=== PATIENT | female | born 1965 | race Caucasian/White ===

== ENCOUNTER 2016-04-10 11:22 | Emergency (ER) | payer OTHER ==
[2016-04-10] MEDS ORDERED: Acetaminophen TAB* 325 MG PO ONE (12:20)
[2016-04-10 12:30] LABS: Hematocrit 43 % (35-47); Mean Corpuscular HGB Conc 33 g/dl (31-36); Mean Corpuscular Hemoglobin 29 pg (27-31); Mean Corpuscular Volume 88 fL (80-97); Mean Platelet Volume 9 um3 (7.4-10.4); Red Blood Count 4.81 10^6/ul (4.0-5.4); Red Cell Distribution Width 15 % (10.5-15); White Blood Count 5.7 10^3/ul (3.5-10.8)
[2016-04-10] MEDS ORDERED: NS 0.9% 1000 ML* 1,000 ML IV SCH (12:30)
[2016-04-10 12:41] LABS: Acetaminophen < 15 mcg/mL; Alcohol < 10 mg/dL (<10)
[2016-04-10 12:42] LABS: ALT 20 U/L (7-52); AST 19 U/L (13-39); Albumin 4.2 g/dL (3.2-5.2); Alkaline Phosphatase 76 U/L (34-104); Anion Gap 6 mmol/L (2-11); BUN/Creatinine Ratio 11.8 (8-20); Blood Urea Nitrogen 12 mg/dL (6-24); C Reactive Protein 3.58 mg/L (< 5.00); CO2 Carbon Dioxide 23 mmol/L (22-32); Calcium 9.2 mg/dL (8.6-10.3); Chloride 111 mmol/L (101-111); EGFR African American 73.8 (>60); EGFR Non-African American 57.4 (>60); Globulin 2.9 g/dL (2-4); Glucose 99 mg/dL (70-100); Potassium 3.6 mmol/L (3.5-5.0); Sodium 140 mmol/L (133-145); Total Protein 7.1 g/dL (6.4-8.9)
[2016-04-10 12:46] LABS: Troponin I 0.01 ng/mL (<0.04)
[2016-04-10 12:51] LABS: TSH (Thyroid Stimulating Horm) 1.02 mcIU/mL (0.34-5.60)
[2016-04-10 12:53] VITALS: BP 118/74
[2016-04-10 13:04] LABS: Urine Bilirubin Negative (Negative); Urine Glucose Negative (Negative); Urine Nitrite Negative (Negative)
--- NOTE | 2016-04-10 13:07 | RAD ---
INDICATION: Left-sided weakness COMPARISON: CT of the chest dated October 15, 2013 TECHNIQUE: Single AP portable view of the chest was obtained. FINDINGS: Image quality is compromised due to the relative inferiority of a portable chest x-ray. The heart and mediastinum exhibit normal size and contour. The lungs are grossly clear. There is no evidence of a large pleural effusion. Visualized bones are normal for the patient's age. IMPRESSION: No radiographic evidence for acute cardiopulmonary abnormality on this portable chest x-ray.
--- NOTE | 2016-04-10 13:28 | RAD ---
Indication: LEFT face, arm, leg weakness. History of medial hepatic intracranial hypertension. Comparison: October 15, 2013 CT. December 11, 2006 MRI. Technique: Noncontrast CT vertex of skull through foramen magnum. Report: The sulci, ventricles, and basal cisterns are normal for age. Sexton matter white matter differentiation is preserved without evidence for edema. No intra or extra axial hemorrhage, mass, or fluid collection detected. Unremarkable orbital contents. Indolent thickening of the inner table of the bone. No suspicious focal osseous lesions evident. Unremarkable scalp. Partially visualized LEFT maxillary sinus demonstrates an air-fluid level. IMPRESSION: 1. Negative unenhanced CT of the brain. 2. Correlate for potential acute LEFT maxillary sinusitis.
[2016-04-10] MEDS ORDERED: Sulfamethox/Trimethoprim DS 800/160* TAB PO ONE (14:02)
--- NOTE | 2016-04-10 14:04 | ED ---
Ryley Augustin Aidan, scribed for Daniel Flores MD on 04/10/16 at 1240 . Neurological HPI - HPI Summary HPI Summary: 50 y/o female presents to the ED with a complaint of acute, constant, moderate left-sided weakness that began as numbness at 0700 this morning when she woke up. She reports increased weakness in her left arm and leg, decreased sensation in the left side of her face, and a left eyelid droop. Symptoms have worsened since onset. Hx of stroke and chronic left sided weakness. Pt uses a cane to walk. Other associated symptoms include severe (9/10) left eye and ear pressure that aggravates her hearing and a sensation in the lower thoracic spine that she associated with getting nauseous. Today, she saw her PCP for the lower thoracic spine sensation. Pt denies any sore throat or nasal congestion and she is eating normally. - History of Current Complaint Chief Complaint: EDNeurologicalDeficit Stated Complaint: POSSIBLE STROKE Time Seen by Provider: 04/10/16 12:05 Hx Obtained From: Patient Hx Last Menstrual Period: 50 y/o female Onset/Duration: Sudden Onset, Started hours ago, Still Present Timing: Constant Onset Severity: Moderate Current Severity: Moderate - with severe left eye and ear pressure Number of Seizures: 0 - no seizures Neurological Deficit Location: RUE, RLE Headache Location: Diffuse (Left) - left ear and eye pressure Pain Intensity: 9 Pain Scale Used: 0-10 Numeric Character: Weak - left sided weakness, Numbness/Tingling - left sided weakness began as a numbness when Pt woke up this morning, Other: - severe left eye and ear pain Number of Episodes: 0 Frequency: Episodes x___ - 0 Associated Signs and Symptoms: Positive: Weakness - left-sided. Negative: Nothing - reports increased weakness in her left arm and leg, decreased sensation in the left side of her face, and a left eyelid droop, moderate-to- severe left eye and ear pressure that aggravates her hearing and a sensation in the lower thoracic spine that she associated with getting nauseous - Allergy/Home Medications Allergies/Adverse Reactions: Allergies Allergy/AdvReac Type Severity Reaction Status Date / Time Erythromycin Allergy Severe Hives, Verified 10/15/13 17:29 THROAT SWELLS Penicillins Allergy Severe HIVES, Verified 10/15/13 17:29 THROAT SWELLS. PMH/Surg Hx/FS Hx/Imm Hx Endocrine/Hematology History: Reports: Hx Thyroid Disease - DOES NOT NEED MEDS ANYMORE Denies: Hx Diabetes Cardiovascular History: Reports: Hx Hypertension Denies: Hx Congestive Heart Failure Respiratory History: Reports: Hx Asthma History: Denies: Hx Renal Disease Neurological History: Reports: Hx Seizures Psychiatric History: Reports: Hx Anxiety - Cancer History Cancer Type, Location and Year: 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 29 - Surgical History Surgery Procedure, Year, and Place: HYSTERECTOMY, T&A Infectious Disease History: No Infectious Disease History: Denies: Traveled Outside the [place] in Last 30 Days - Family History Known Family History: Positive: Hypertension - Social History Occupation: Unemployed Lives: Alone Alcohol Use: None Substance Use Type: Reports: None Smoking Status (MU): Never Smoked Tobacco Review of Systems Constitutional: Negative Eyes: Other - left eye pressure Negative: Photophobia, Blurred Vision, Diplopia, Drainage, Erythema Positive: Ear Ache - left ear pressure. Negative: Epistaxis, Dental Pain, Sore Throat, Nasal Discharge Cardiovascular: Negative Respiratory: Negative Positive: Nausea. Negative: Abdominal Pain, Vomiting, Diarrhea Genitourinary: Negative Positive: Arthralgia - sensation in the lower thoracic spine that she associated with getting nauseous. Negative: Myalgia, Decreased ROM, Edema Skin: Negative Positive: Weakness - increased weakness in her left arm and leg, decreased sensation in the left side of her face, and a left eyelid droop, Numbness - left -sided weakness began as numbness when pt woke up this morning. Negative: Paresthesia, Syncope, Slurred Speech Psychological: Normal All Other Systems Reviewed And Are Negative: Yes Physical Exam Triage Information Reviewed: Yes Vital Signs On Initial Exam: Initial Vitals Temp Pulse Resp BP Pulse Ox 99.3 F 90 16 129/85 98 04/10/16 11:25 04/10/16 11:25 04/10/16 11:25 04/10/16 11:25 04/10/16 11:25 Vital Signs Reviewed: Yes Appearance: Positive: Well-Appearing, No Pain Distress Skin: Positive: Warm, Skin Color Reflects Adequate Perfusion, Dry Head/Face: Positive: Normal Head/Face Inspection Eyes: Positive: EOMI, KARON ENT: Positive: Normal ENT inspection Neck: Positive: Supple, Nontender Respiratory/Lung Sounds: Positive: Clear to Auscultation, Breath Sounds Present Cardiovascular: Positive: RRR Abdomen Description: Positive: Nontender, Soft Bowel Sounds: Positive: Present Musculoskeletal: Positive: Strength/ROM Intact Neurological: Positive: Sensory/Motor Intact, Alert, Oriented to Person Place, Time, Facial Droop - left side, Other - she reports decreased sensation to the left side of the face, a left eyelid droop, mild weakness and decreased sensation left arm, no difference between left and right leg on exam Psychiatric: Positive: Affect/Mood Appropriate - Andrew Coma Scale Coma Scale Total: 15 Diagnostics - Vital Signs Vital Signs Temp Pulse Resp BP Pulse Ox 04/10/16 11:25 99.3 F 90 16 129/85 98 - Laboratory Lab Results: Lab Results 04/10/16 04/10/16 04/10/16 Range/Units 11:35 11:35 11:35 WBC 5.7 (3.5-10.8) 10^3/ul RBC 4.81 (4.0-5.4) 10^6/ul Hgb 14.0 (12.0-16.0) g/dl Hct 43 (35-47) % MCV 88 (80-97) fL MCH 29 (27-31) pg MCHC 33 (31-36) g/dl RDW 15 (10.5-15) % Plt Count 171 (150-450) 10^3/ul MPV 9 (7.4-10.4) um3 Neut % (Auto) 60.8 (38-83) % Lymph % (Auto) 27.3 (25-47) % Hamlin % (Auto) 6.5 (1-9) % Eos % (Auto) 4.5 (0-6) % Baso % (Auto) 0.9 (0-2) % Absolute Neuts (auto) 3.5 (1.5-7.7) 10^3/ul Absolute Lymphs (auto) 1.6 (1.0-4.8) 10^3/ul Absolute Monos (auto) 0.4 (0-0.8) 10^3/ul Absolute Eos (auto) 0.3 (0-0.6) 10^3/ul Absolute Basos (auto) 0.1 (0-0.2) 10^3/ul Absolute Nucleated RBC 0.01 10^3/ul Nucleated RBC % 0.2 INR (Anticoag Therapy) 0.94 (0.89-1.11) APTT 30.2 (26.0-36.3) seconds Sodium 140 (133-145) mmol/L Potassium 3.6 (3.5-5.0) mmol/L Chloride 111 (101-111) mmol/L Carbon Dioxide 23 (22-32) mmol/L Anion Gap 6 (2-11) mmol/L BUN 12 (6-24) mg/dL Creatinine 1.02 H (0.51-0.95) mg/dL Est GFR ( Amer) 73.8 (>60) Est GFR (Non-Af Amer) 57.4 (>60) BUN/Creatinine Ratio 11.8 (8-20) Glucose 99 (70-100) mg/dL Calcium 9.2 (8.6-10.3) mg/dL Magnesium 2.0 (1.9-2.7) mg/dL Total Bilirubin 0.30 (0.2-1.0) mg/dL AST 19 (13-39) U/L ALT 20 (7-52) U/L Alkaline Phosphatase 76 (34-104) U/L Troponin I 0.01 (<0.04) ng/mL C-Reactive Protein 3.58 (< 5.00) mg/L Total Protein 7.1 (6.4-8.9) g/dL Albumin 4.2 (3.2-5.2) g/dL Globulin 2.9 (2-4) g/dL Albumin/Globulin Ratio 1.4 (1-3) TSH 1.02 (0.34-5.60) mcIU/mL Urine Color Urine Appearance Urine pH (5-9) Ur Specific [place] (1.010-1.030) Urine Protein (Negative) Urine Ketones (Negative) Urine Blood (Negative) Urine Nitrate (Negative) Urine Bilirubin (Negative) Urine Urobilinogen (Negative) Ur Leukocyte Esterase (Negative) Urine Glucose (Negative) Acetaminophen < 15 mcg/mL Serum Alcohol < 10 (<10) mg/dL 04/10/16 Range/Units 12:47 WBC (3.5-10.8) 10^3/ul RBC (4.0-5.4) 10^6/ul Hgb (12.0-16.0) g/dl Hct (35-47) % MCV (80-97) fL MCH (27-31) pg MCHC (31-36) g/dl RDW (10.5-15) % Plt Count (150-450) 10^3/ul MPV (7.4-10.4) um3 Neut % (Auto) (38-83) % Lymph % (Auto) (25-47) % Hamlin % (Auto) (1-9) % Eos % (Auto) (0-6) % Baso % (Auto) (0-2) % Absolute Neuts (auto) (1.5-7.7) 10^3/ul Absolute Lymphs (auto) (1.0-4.8) 10^3/ul Absolute Monos (auto) (0-0.8) 10^3/ul Absolute Eos (auto) (0-0.6) 10^3/ul Absolute Basos (auto) (0-0.2) 10^3/ul Absolute Nucleated RBC 10^3/ul Nucleated RBC % INR (Anticoag Therapy) (0.89-1.11) APTT (26.0-36.3) seconds Sodium (133-145) mmol/L Potassium (3.5-5.0) mmol/L Chloride (101-111) mmol/L Carbon Dioxide (22-32) mmol/L Anion Gap (2-11) mmol/L BUN (6-24) mg/dL Creatinine (0.51-0.95) mg/dL Est GFR ( Amer) (>60) Est GFR (Non-Af Amer) (>60) BUN/Creatinine Ratio (8-20) Glucose (70-100) mg/dL Calcium (8.6-10.3) mg/dL Magnesium (1.9-2.7) mg/dL Total Bilirubin (0.2-1.0) mg/dL AST (13-39) U/L ALT (7-52) U/L Alkaline Phosphatase (34-104) U/L Troponin I (<0.04) ng/mL C-Reactive Protein (< 5.00) mg/L Total Protein (6.4-8.9) g/dL Albumin (3.2-5.2) g/dL Globulin (2-4) g/dL Albumin/Globulin Ratio (1-3) TSH (0.34-5.60) mcIU/mL Urine Color Straw Urine Appearance Clear Urine pH 7.0 (5-9) Ur Specific [place] 1.005 L (1.010-1.030) Urine Protein Negative (Negative) Urine Ketones Negative (Negative) Urine Blood Negative (Negative) Urine Nitrate Negative (Negative) Urine Bilirubin Negative (Negative) Urine Urobilinogen Negative (Negative) Ur Leukocyte Esterase Negative (Negative) Urine Glucose Negative (Negative) Acetaminophen mcg/mL Serum Alcohol (<10) mg/dL Result Diagrams: 04/10/16 11:35 04/10/16 11:35 Lab Statement: Any lab studies that have been ordered have been reviewed, and results considered in the medical decision making process. - Radiology CHEST XR Xray Interpretation: No Acute Changes - IMPRESSION: No radiographic evidence for acute cardiopulmonary abnormality on this portable chest x-ray. Radiology Interpretation Completed By: Radiologist NIH Scale - NIH Scale Level of Consciousness: Alert/Keenly Responsive Ask Patient the Month and His/Her Age: Both Correct Ask Pt to Open/Close Eyes and Change Management/Release Non-Paretic Hand: Both Correctly Best Gaze (Only Horizontal Eye Movement): Normal Visual Field Testing: No Visual Loss Facial Paresis-Pt to Smile & Close Eyes or Grimace Symmetry: Minor Paralysis Motor Function - Right Arm: No Drift-Holds 10 Seconds Motor Function - Left Arm: No Drift-Holds 10 Seconds Motor Function - Right Leg: No Drift-Holds 10 Seconds Motor Function - Left Leg: No Drift-Holds 10 Seconds Limb Ataxia-Must be out of Proportion to Weakness Present: Absent Sensory (Use Pinprick to Test Arms/Legs/Trunk/Face): Normal Best Language (Describe Picture, Name Items): No Aphasia Dysarthria (Read Several Words): Normal Extinction and Inattention: No Abnormality Total Score: 1 Course/Dx - Course Assessment/Plan: WELL IN ED. DR MIRELES, NEUROLOGY, SAW PATIENT IN ED. DISCHARGE HOME STABLE. - Diagnoses Provider Diagnoses: Weakness, Sinusitis Discharge - Discharge Plan Condition: Stable Disposition: HOME Prescriptions: Sulfamethox/Trimethoprim DS* [Bactrim DS 800/160 TAB*] 1 tab PO BID #19 tab Patient Education Materials: Weakness (ED), Sinusitis (ED) Referrals: Kallie Can NP [Primary Care Provider] - Additional Instructions: FOLLOW UP WITH YOUR DOCTOR. RETURN TO THE EMERGENCY DEPARTMENT FOR ANY WORSENING OF YOUR CONDITION OR QUESTIONS OR CONCERNS. The documentation as recorded by the Ryley bains Aidan accurately reflects the service I personally performed and the decisions made by me, Daniel Flores MD.
--- NOTE | 2016-04-10 18:53 | CONS ---
NEUROLOGY CONSULTATION: DATE OF CONSULT: 04/10/16 - EMERGENCY DEPT REFERRING PHYSICIAN: Dr. Flores. CHIEF COMPLAINT: Left-sided weakness. HISTORY OF PRESENT ILLNESS: Stacia He is a 50-year-old right-handed woman known to me from a prior evaluation in 2013 with recurrent episodes of diminished responsiveness and left-sided weakness. She reports that she had a stroke many years ago leaving her with persistent left-sided weakness and numbness. She gets episodes of worsening left-sided numbness and weakness which sometimes lead to hospitalizations and which uniformly resolves. She had MR imaging here in 2006 and at [facility] in 2013 for episodes, both of which were normal. She also carries a diagnosis of pseudotumor cerebri and epilepsy for which she is on acetazolamide and anticonvulsants. She had been feeling a little bit ill lately and was recovering from the flu that she had in January. She was at a doctor's office to be evaluated for why she gets a sense of nausea when this pressure on the back of her thoracic spine. She was getting dressed at her primary care provider's office and had difficulty dressing because she felt like her left side was weaker than usual. I do not have any other details, but she was then brought in by ambulance to the emergency room. She says she has not had a seizure for over a year and there had been no episodes of loss of consciousness recently. She has a chronic dull daily headache for which she remains on acetazolamide. When I saw her previously in 2013, she reported that she was evaluated in [place] and was given a diagnosis of psychogenic nonepileptic spells that her doctor in [place] felt that best she remains on anticonvulsants as she particularly had been episode-free for over a year. PAST MEDICAL HISTORY: Otherwise notable for hyperlipidemia, anxiety disorder, thyroid nodules, gastroesophageal reflux. MEDICATIONS: Currently consist of: 1. Keppra 500 mg p.o. b.i.d. 2. Lamictal 100 mg p.o. b.i.d. 3. Acetazolamide 500 mg p.o. b.i.d. 4. Lipitor 20 mg p.o. q. day. 5. Omeprazole 20 mg p.o. q. day. 6. BuSpar 5 mg p.o. t.i.d. 7. Celexa 20 mg p.o. q. day. FAMILY HISTORY: Noncontributory. SOCIAL HISTORY: She is a nonsmoker, does not drink alcohol. I believe she is on disability. REVIEW OF SYSTEMS: Notable for recovering from a flu with lots of coughing and some nausea going back a couple of months now. Her weight is stable. She has not had any fevers lately. She fell in September and banged her head, but did not lose consciousness. She fell another time this winter and she just hit her knees. She usually ambulates independently. There is no history of diabetes, cardiac, pulmonary, renal, GI, or disease. There is a history of psychiatric disease in notation from her evaluation in [place] in 2013 indicates suicidal ideation. PHYSICAL EXAM: She is well nourished and well hydrated. She is afebrile. Blood pressure on the monitor is 120/72, heart rate 66 and regular, respirations about 16. Lungs are clear bilaterally. Heart is in a regular rate and rhythm without murmurs. Carotid pulses are symmetrical and there are no bruits. Distal pulses are present and extremities are warm. On neurological exam, pupils react equally from 4 down to 2.5 mm. Funduscopic exam reveals sharp discs and venous pulsation seen bilaterally. Eye movements are full with intermittent exophoria, left eye. Visual mcbride are full to confrontation. There is no ptosis, but she does squint at times. Facial musculature is otherwise symmetric. Facial sensation is intact and symmetric to pin and light touch. Palate and tongue appear normal. Tongue protrudes in the midline and there is no dysarthria. Hearing is intact bilaterally and neck strength is normal. Motor exam reveals normal muscle tone and strength in the limbs. There is some mild drift to the left arm, but no pronation. There is some break-away weakness diffusely in the left arm and leg, but she is able to try resistance with encouragement. Finger taps are slow bilaterally. There is no rest tremor. [id number] maneuver is normal bilaterally. Sensory exam is notable for diminished light touch to the wrist and diminished light touch and pin to the wrist and to the left ankle. Sensory exam to vibration, light touch, and pin is otherwise normal in the limbs. Reflexes are intact and symmetric in the upper and lower extremities, plantar responses are flexor bilaterally. I did not attempt to ambulate her. She is an awake and alert and a good historian. Memory is intact and language is fluent. DIAGNOSTIC STUDIES/LAB DATA: Includes a CT of the brain which I reviewed and which looks completely normal. Older data is notable for an EEG from 10/16/13 for which she was admitted with a possible seizure and that was interpreted as normal. Laboratory data today notable for a normal CBC, normal chemistry profile. 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 She typically always resolves and so, I do not think further evaluation is needed if we can get her up and ambulatory. I talked with Dr. Flores and he is going to see if the nurse or PT can get her up and see how she does and if she is able to ambulate safely, I think she could be discharged home on her usual medications. CC: Kallie Williamson NP; Dr. Jhonny Mauro, [facility] * [id number]/CPS #: [id number] MTDD
[2016-04-11 15:17] LABS: Lamotrigine 3.8 mcg/mL (2.5 - 15.0)
[2016-04-11 16:17] LABS: Levetiracetam 36.9 mcg/mL
--- NOTE | 2016-05-19 12:28 | ED ---
IRyley Aidan, scribed for Daniel Flores MD on 04/10/16 at 1522 . Progress - Progress Note Progress Note: BRAIN CT IMPRESSION: 1. Negative unenhanced CT of the brain. 2. Correlate for potential acute LEFT maxillary sinusitis. Course/Dx - Diagnoses Provider Diagnoses: Weakness, Sinusitis The documentation as recorded by the Ryley bains Aidan accurately reflects the service I personally performed and the decisions made by , Daniel Flores MD.
== END 2016-04-10 14:17 | disposition home or self-care (01) ==
LOC: ED 11:22
DX: R53.1 Weakness (principal); J32.9 Chronic sinusitis, unspecified; I10 Essential (primary) hypertension; I69.354 Hemiplegia and hemiparesis following cerebral infarction affecting left non-dominant side; Z88.0 Allergy status to penicillin; Z88.2 Allergy status to sulfonamides; E78.5 Hyperlipidemia, unspecified; F41.9 Anxiety disorder, unspecified; G40.909 Epilepsy, unspecified, not intractable, without status epilepticus; K21.9 Gastro-esophageal reflux disease without esophagitis
CPT/HCPCS: 36415; 70450; 71010; 80053; 80175; 80177; 80320; 80329; 81003; 83735; 84443; 84484; 85025; 85610; 85730; 86140; 96360; 99283; A9270-GY; G0480

== ENCOUNTER 2018-11-20 06:33 | Observation (INO) | payer OTHER ==
[2018-11-20] MEDS ORDERED: NS 0.9% 1000 ML** 1,000 ML IV ONE (06:35)
[2018-11-20 07:14] LABS: ABS Eosinophils 0.4 10^3/ul (0-0.6); ABS Lymphocytes 1.4 10^3/ul (1.0-4.8); ABS Monocytes 0.4 10^3/ul (0-0.8); ABS Neutrophils 2.2 10^3/ul (1.5-7.7); Eosinophil % 8.3 %; Hematocrit 41 % (35-47); Hemoglobin 13.9 g/dL (12.0-16.0); Lymphocyte % 31.4 %; Mean Corpuscular HGB Conc 34 g/dL (31-36); Mean Corpuscular Hemoglobin 30 pg (27-31); Mean Corpuscular Volume 88 fL (80-97); Nucleated Red Blood Cells % 0.1; Platelet Count 142 10^3/uL (150-450); Red Cell Distribution Width 14 % (10-15); White Blood Count 4.4 10^3/uL (3.5-10.8)
--- NOTE | 2018-11-20 07:14 | ED ---
Neurological HPI - History of Current Complaint Stated Complaint: STROKE PER EMS Hx Last Menstrual Period: 50 y/o female Pain Intensity: 0 - Allergy/Home Medications Allergies/Adverse Reactions: Allergies Allergy/AdvReac Type Severity Reaction Status Date / Time MS Erythromycin Allergy Severe Hives, Verified 10/15/13 17:29 [Erythromycin] THROAT SWELLS MS Penicillins [Penicillins] Allergy Severe HIVES, Verified 10/15/13 17:29 THROAT SWELLS. PMH/Surg Hx/FS Hx/Imm Hx Endocrine/Hematology History: Reports: Hx Thyroid Disease - DOES NOT NEED MEDS ANYMORE Denies: Hx Diabetes Cardiovascular History: Reports: Hx Hypertension Denies: Hx Congestive Heart Failure Respiratory History: Reports: Hx Asthma History: Denies: Hx Renal Disease Neurological History: Reports: Hx Seizures Psychiatric History: Reports: Hx Anxiety - Cancer History Cancer Type, Location and Year: 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 29 - Surgical History Surgery Procedure, Year, and Place: HYSTERECTOMY, T&A Infectious Disease History: No Infectious Disease History: Denies: Traveled Outside the [place] in Last 30 Days - Family History Known Family History: Positive: Hypertension - Social History Alcohol Use: Occasionally Alcohol Amount: one glass of wine last night 11/19/18 Substance Use Type: Reports: None Smoking Status (MU): Never Smoked Tobacco Physical Exam Vital Signs On Initial Exam: Initial Vitals Temp Pulse Resp BP Pulse Ox 98.5 F 92 16 153/78 100 11/20/18 06:59 11/20/18 06:59 11/20/18 06:59 11/20/18 06:59 11/20/18 06:59 Diagnostics - Vital Signs Vital Signs Temp Pulse Resp BP Pulse Ox 11/20/18 06:59 98.5 F 92 16 153/78 100 - Laboratory Lab Statement: Any lab studies that have been ordered have been reviewed, and results considered in the medical decision making process. Discharge ED - Discharge Plan Referrals: Tony Hensley MD [Primary Care Provider] - - Attestation Statements Document Initiated by Scribe: Yes
[2018-11-20 07:22] LABS: Activated Partial Thrombo Time 32.6 seconds (26.0-38.0); INR 0.97 (0.82-1.09)
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
[2018-11-20 07:31] LABS: Albumin 3.7 g/dL (3.2-5.2); Albumin/Globulin Ratio 1.9 (1-3); BUN/Creatinine Ratio 10.3 (8-20); Calcium 8.6 mg/dL (8.6-10.3); EGFR African American 82.4 (>60); EGFR Non-African American 68.1 (>60); HDL Cholesterol 36.5 mg/dL; Potassium 3.9 mmol/L (3.5-5.0); Total Bilirubin 0.4 mg/dL (0.2-1.0); Total Protein 5.7 g/dL (6.4-8.9)
--- NOTE | 2018-11-20 07:31 | ED ---
Progress - Progress Note Progress Note: This patient is a 53 year-old F BIBA via EMS to [facility] with CC of worsening left- sided weakness since last. Patient has a hx of CVA. Patient is a sign-out from Dr. Enrique Garcia to Dr. Mark Quigley at 0700 on 11/20/18 at shift change pending head CTA and disposition. - Results/Orders Results/Orders: Head/neck CTA revealed 1. NO EVIDENCE FOR HEMODYNAMICALLY SIGNIFICANT CAROTID STENOSIS. 2. NO EVIDENCE FOR LARGE VESSEL INTRACRANIAL THROMBUS. Dr. Quigley has reviewed this radiology report. Course/Dx - Course Course Of Treatment: This patient is a 53 year-old F BIBA via EMS to [facility] with CC of worsening left-sided weakness since last. Patient has a hx of CVA. Patient is a sign-out from Dr. Enrique Garcia to Dr. Mark Quigley at 0700 on at shift change pending head CTA and disposition. Head CTA revealed: 1. NO EVIDENCE FOR HEMODYNAMICALLY SIGNIFICANT CAROTID STENOSIS. 2. NO EVIDENCE FOR LARGE VESSEL INTRACRANIAL THROMBUS. . This patient was signed out by Dr. Garcia the previously attending. The patient had a left-sided deviation, some speech aphasia and he called a code in mart[place]. He spoke with the tele- stroke provider Dr. Mendoza from [place] and after their assessment the patient is not a candidate for TPA. However, they recommend for the patient to be seen by neurology, admission to the hospitalist, an MRI of the brain and neck EEG. Therefore, I discussed my physical exam and findings with Dr. Berkowitz from neurology and he will consult for this patient. I also discussed my physical exam and findings with Dr. Espitia from the hospital services who accepted the patient for admission. The patient is hemodynamically stable alert and oriented 3. - Diagnoses Provider Diagnoses: Weakness - Provider Notifications Discussed Care Of Patient With: Sophia Berkowitz Time Discussed With Above Provider: 08:13 Instructed by Provider To: Other - Discussed patient case with Dr. Berkowitz, neurologist, who will consult the patient. At 0819, discussed patient case with Dr. Espitia, hospitalist, who accepted the patient for admission to [facility]. Discharge ED - Sign-Out/Discharge Documenting (check all that apply): Patient Departure - Admit, Receiving Sign- Out Receiving patient FROM: Enrique Garcia - Discharge Plan Condition: Fair Disposition: ADMITTED TO [facility] Referrals: Tony Hensley MD [Primary Care Provider] - - Attestation Statements Document Initiated by Scribe: Yes Documenting Scribe: Pieter Alvarado Provider For Whom Scribe is Documenting (Include Credential): Mark Quigley MD Scribe Attestation: I, Pieter Alvarado, scribed for Mark Quigley MD on 11/20/18 at 0837. Status of Scribe Document: Ready
[2018-11-20] MEDS ORDERED: Albuterol HFA INHALER* 8 gm MDI INH PRN (09:05)
[2018-11-20 09:29] LABS: Urine Appearance Clear; Urine Bilirubin Negative (Negative); Urine Blood Negative (Negative); Urine Color Yellow; Urine Glucose Negative (Negative); Urine Ketones Negative (Negative); Urine Nitrite Negative (Negative); Urine Protein Negative (Negative); Urine Specific Gravity > 1.060 (1.010-1.030); Urine Urobilinogen Negative (Negative)
[2018-11-20] MEDS ORDERED: Lorazepam PYXIS KEY PRN (12:11)
[2018-11-20] MEDS ORDERED: LORazepam INJ* 2 MG/ML 1 ML VIAL IV PUSH PRN (12:11)
[2018-11-20] MEDS: levETIRAcetam TAB* 500 MG PO SCH ×2 (13:36→20:41)
[2018-11-20] MEDS: lamoTRIgine TAB(*) 100 MG PO SCH ×2 (13:36→20:40)
[2018-11-20] MEDS: Citalopram TAB* 20 MG PO SCH (13:36)
[2018-11-20] MEDS: Pantoprazole TAB * 40 MG TAB PO PRN (13:36)
[2018-11-20] MEDS: Acetaminophen / Codeine* #3 (300 MG/30 MG) TAB PO SCH ×2 (13:37→20:40)
[2018-11-20 14:36] LABS: TSH (Thyroid Stimulating Horm) 1.2 mcIU/mL (0.34-5.60)
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
--- NOTE | 2018-11-20 18:42 | HP ---
CC: Dr. Hensley * HISTORY AND PHYSICAL: DATE OF ADMISSION: 11/20/18 PRIMARY CARE PROVIDER: Dr. Hensley. CHIEF COMPLAINT: Leftward gaze and left arm and leg weakness. HISTORY OF PRESENT ILLNESS: Ms. He is a 53-year-old female with past history of CVA who also has a history of pseudotumor cerebri and seizure disorder, though based on old records it appears that she has psychogenic nonepileptic spells. The patient states that approximately 3 days ago the patient's daughter and grandkids moved in with her. She has had increased activity and stress beyond her baseline. She states that she has been seizure- free over the last 6 months. She states at approximately 1 a.m. she woke up to go to the bathroom and noticed that she had changes in her vision. She went back to bed and woke up then at 5 a.m. At that point, she felt like she was breathing shallowly, she felt as if her left eye was deviated to the left and up , and she felt very weak on the left side. At that point, she called 911. The patient states that she has also had a headache since waking up at 5 a.m. Because of these symptoms, she was concerned for seizure or stroke and therefore presented to the ER. PAST MEDICAL HISTORY: 1. Pseudotumor cerebri. 2. 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 3. Hyperlipidemia. 4. GERD. 5. Anxiety/PTSD. PAST SURGICAL HISTORY: 1. Hysterectomy. 2. Tonsillectomy. MEDICATIONS: 1. Keppra 500 mg p.o. b.i.d. 2. Lamictal 100 mg p.o. b.i.d. 3. Omeprazole 20 mg p.o. daily p.r.n. GERD. 4. Celexa 20 mg p.o. daily. 5. Lipitor 20 mg p.o. daily. 6. Albuterol 1 to 2 puffs q.6 hours p.r.n. shortness of breath. 7. Tylenol with Codeine 1 tab p.o. b.i.d. 8. Acetazolamide ER 500 mg p.o. b.i.d. ALLERGIES: ERYTHROMYCIN, PENICILLIN, and LATEX. FAMILY HISTORY: Mom at the age of 46, had type 1 diabetes. Dad has hypertension. The patient has a sister with colon cancer. SOCIAL HISTORY: The patient does not smoke. She did drink 1 glass of wine last evening. 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 She has been disabled for years. She is . She has 3 children. Her daughter, Mercedes , is her healthcare proxy. REVIEW OF SYSTEMS: A complete 11-system review of systems was obtained. Pertinent positives and negatives are as per HPI and otherwise negative. PHYSICAL EXAMINATION GENERAL: The patient is a well-developed, middle-aged female seen sitting up in the stretcher, in no acute distress. VITAL SIGNS: Blood pressure 124/81, pulse 75, respirations 14, temp 98.5, O2 sat 93% on room air. HEENT: Pupils are equal and round. Extraocular muscles are intact. Oropharynx is clear. Oral mucosa is moist. PULMONARY: Lungs are clear to auscultation bilaterally. CARDIAC: Normal S1, S2. Regular rate and rhythm. I do not appreciate any murmurs. There is no lower extremity edema. ABDOMEN: Bowel sounds are present. Abdomen is soft, nontender, nondistended. MUSCULOSKELETAL: There is no cyanosis or clubbing of the digits. There is full range of motion of the upper extremities and lower extremities. NEURO: Cranial nerves II through XII are grossly intact. Sensation is intact to light touch throughout. Strength in the left upper extremity distally is reduced, though the patient is not giving a full effort. Lower extremity strength is normal bilaterally. PSYCH: The patient is alert. She is oriented x3. Affect appears appropriate. SKIN: Visible areas of skin are warm and dry and without rash. DIAGNOSTIC STUDIES/LAB DATA: WBC 4.4, hemoglobin 13.9, hematocrit 41, platelets 142. INR 0.97. Sodium 141, potassium 3.9, chloride 111, CO2 of 25, BUN 9, creatinine 0.87, glucose 106, lactic acid 1.1, calcium 8.6. Bilirubin 0.4, AST 20, ALT 17, alk phos 67. Troponin 0. Albumin 3.7. Urinalysis is negative. EKG reveals normal sinus rhythm, baseline is very distorted and otherwise difficult to interpret. CT brain reveals no acute intracranial process. There are mild chronic ischemic changes in the periventricular deep white matter. CTA head and neck: There is no evidence for hemodynamically significant carotid stenosis. There is no evidence for large vessel intracranial thrombus. Chest x-ray: No active cardiopulmonary disease. ASSESSMENT AND PLAN: Ms. He is a 53-year-old female with a history of pseudotumor cerebri, reported past history of cerebrovascular accident with residual left-sided weakness, and psychogenic nonepileptic spells who presents to the emergency room with complaints of left eye gaze deviation and left arm and leg weakness. 1. Left gaze deviation and left arm and leg weakness. At this point, my suspicion is this is psychogenic in nature. The patient has had a tremendous amount of increased stress in her life over the last 3 days with her daughter and grandkids moving in. The patient's physical exam is nonphysiologic. She did have a telestroke consultation with [facility]. Dr. Berkowitz will be seeing the patient today. For now, an MRI of the brain has been ordered as has EEG, though I do not believe that this represents seizure either. She has had similar presentations to this in the past and they have resolved spontaneously. 2. Pseudotumor cerebri. The patient will need to continue on acetazolamide 500 mg p.o. twice daily. The patient has not been seen by Ophthalmology in many years and it is recommended that she follow up as an outpatient for evaluation of papilledema. 3. Depression/anxiety. Continue Celexa 20 mg p.o. daily. 4. Hyperlipidemia. Continue statin. 5. DVT prophylaxis: According to the Adult Thrombosis Prophylaxis Risk Factor Assessment Guide, the patient has a total risk factor score of 2, making her moderate risk. Heparin 5000 units subcutaneous q.12 hours will be utilized as DVT prophylaxis. 6. Code status is full. TIME SPENT: Fifty-five minutes was spent admitting this patient. [id number]/[facility] #: [id number] JORDY
--- NOTE | 2018-11-20 19:07 | EEG ---
ELECTROENCEPHALOGRAPHY: DATE OF STUDY: 11/20/18 - ROOM #451 DATE READ: 11/20/18 ORDERED BY: Dr. Katarina Espitia. CLINICAL PROBLEM: Ms. He is a 53-year-old female with a history of pseudoseizure, who had an episode of seizure-like activity. This EEG was requested to evaluate for epileptiform discharges or subclinical seizures. MEDICATIONS: 1. Tylenol/codeine. 2. Acetazolamide. 3. Heparin. 4. Lamictal. 5. Keppra. 6. Lipitor. 7. Celexa. 8. Albuterol. 9. Protonix. CLINICAL STATE: Awake. REPORT: The waking background showed appropriate organization with clearly defined anterior-posterior voltage and frequency gradients. There was a well- defined posterior dominant rhythm of 10 Hz, which was symmetrical and showed normal reactivity. Anteriorly, there was an expected pattern of lower voltage, irregular, mixed faster frequencies. Hyperventilation and photic stimulation were not performed. Single electrode EKG showed normal sinus rhythm with a rate of 70 beats per minute. Throughout the recording, there were no epileptiform discharges or electrographic seizures. CLINICAL IMPRESSION: This is a normal awake EEG with no evidence of epileptiform discharges or electrographic seizures. [id number]/[facility] #: [id number] JORDY
[2018-11-20] MEDS: Heparin VIAL(*) 5000 UNITS/ML VIAL (FIVE THOUSAND) SUBCUT SCH (20:42)
[2018-11-20] MEDS: ACETAZOLAMIDE 500 MG PO SCH (20:45)
[2018-11-21] MEDS ORDERED: Atorvastatin* 20 MG TAB PO SCH (09:00)
[2018-11-21] MEDS: Acetaminophen / Codeine* #3 (300 MG/30 MG) TAB PO SCH (10:32)
[2018-11-21] MEDS: Pantoprazole TAB * 40 MG TAB PO PRN (10:32)
[2018-11-21] MEDS: lamoTRIgine TAB(*) 100 MG PO SCH (10:32)
[2018-11-21] MEDS: Heparin VIAL(*) 5000 UNITS/ML VIAL (FIVE THOUSAND) SUBCUT SCH (10:32)
[2018-11-21] MEDS: Citalopram TAB* 20 MG PO SCH (10:32)
[2018-11-21] MEDS: levETIRAcetam TAB* 500 MG PO SCH (10:32)
[2018-11-21] MEDS: ACETAZOLAMIDE 500 MG PO SCH (10:33)
[2018-11-21] MEDS ORDERED: Cyanocobalamin INJ * 1,000 MCG/ML VIAL 1 ML VIAL IM ONE (12:12)
--- NOTE | 2018-11-21 12:27 | PN ---
Subjective Date of Service: 11/21/18 Length of Stay: 1 Days Neurology is following for headaches, pseudoseizure, and subjective weakness on the left side. Interval History: She complained of a headache this morning. When asked about the onset, she mentioned that it started this morning at 8 a.m. I reminded her that she had a headache yesterday when I interviewed her, but she is convinced that this is a new headache. She last had an LP one year ago. She feels that "her pressure on her head is very high." She has chronic visual obscuration. The pain is 9/ 10, bi-frontal wrapping pain, radiating towards the occipital region, and associated neck pain. The patient talked to her daughter this morning. Afterwards, she started crying and is concerned about how she is going to deal with all the problems she has at home. The nurse documented left sided weakness but the patient denied any new weakness today. She has not had any seizure-like activity since the episode that took place yesterday. Labs: B12: 228 TSH: 1.20 Cholesterol: 230 LDL: 169 Review of Systems: Denied CP, SOB, or palpitations. Objective Active Medications: Acetaminophen/Codeine Phosphate (Tylenol/Codeine 30 Mg Tab*) 1 tab PO BID [facility] Last Admin: 11/21/18 10:32 Dose: 1 tab Albuterol (Ventolin Hfa Inhaler*) 2 puff INH Q6H PRN PRN Reason: SOB/WHEEZING Atorvastatin Calcium (Lipitor*) 40 mg PO QPM [facility] Citalopram Hydrobromide (Celexa Tab*) 20 mg PO DAILY [facility] Last Admin: 11/21/18 10:32 Dose: 20 mg Cyanocobalamin (Vitamin B12 Inj *) 1,000 mcg IM ONCE ONE Stop: 11/21/18 12:13 Cyanocobalamin (Vitamin B12 Tab*) 1,000 mcg PO DAILY [facility] Heparin Sodium (Porcine) (Heparin Vial(*)) 5,000 units SUBCUT Q12HR [facility] Last Admin: 11/21/18 10:32 Dose: 5,000 units Lamotrigine (Lamictal Tab(*)) 100 mg PO BID [facility] Last Admin: 11/21/18 10:32 Dose: 100 mg Levetiracetam (Keppra Tab*) 500 mg PO BID [facility] Last Admin: 11/21/18 10:32 Dose: 500 mg Nft: Acetazolamide [ Acetazolamide Er] 500 Mg 500 mg PO BID [facility] Last Admin: 11/21/18 10:33 Dose: Not Given Pantoprazole Sodium (Protonix Tab*) 40 mg PO DAILY PRN PRN Reason: INDIGESTION Last Admin: 11/21/18 10:32 Dose: 40 mg Vital Signs 11/21/18 11/21/18 11/21/18 03:37 08:30 08:45 Temperature 98.2 F 97.4 F Pulse Rate 72 78 Respiratory 19 20 Rate Blood Pressure 108/67 119/71 (mmHg) O2 Sat by Pulse 97 97 100 Oximetry 11/21/18 11/21/18 09:16 10:32 Temperature 97.5 F Pulse Rate 87 Respiratory 18 18 Rate Blood Pressure 133/75 (mmHg) O2 Sat by Pulse 100 Oximetry Intake and Output Last 24 Hours 11/19/18 11/20/18 11/21/18 11/22/18 06:59 06:59 06:59 06:59 Intake Total 1880 240 Output Total 0 Balance 1880 240 Weight 260 lb 216 lb Intake: Oral 1880 240 Output: Urine 0 Other: Estimated Void Large # Voids 1 Oxygen Devices in Use Now: None Neurology Exam: General: Well nourished, well developed, and in no acute distress HEENT: Normocephelic/atraumatic, sclera anicteric, mucous membranes moist Neck: Supple Chest: Clear to auscultation bilaterally Cardiovascular: Regular rate and rhythm without murmurs, rubs, gallops Extremities: No clubbing, cyanosis, or edema Neurological Findings: Awake, alert, and oriented to person, place, and time. Speech: fluent without dysarthria, repetition intact Cranial Nerve: PERRL, EOM intact, VFF, no nystagmus, face symmetric bilaterally , facial sensation intact, hearing intact to finger rub bilaterally, palate elevates symmetrically, tongue midline, SCM and Trapezius s/s. Undilated fundoscopic evaluation shows mild blurriness o the disc margins. Motor: s/s throughout, proximal and distal extremities x4 tone/bulk normal. Give way weakness on the left. With encouragement, she is able to give full effort on the left upper extremity. Sensation: intact to LT/PP bilaterally upper and lower extremities Deep Tendon Reflex: 2+ symmetric in the upper/lower extremities, Babinski - down going Finger to nose, rapid alternating movements intact without tremor, no dysdiadochokinesia Gait: intact with good arm swing and stride Result Diagrams: 11/20/18 07:07 11/20/18 07:07 Additional Lab and Data: Lab Results 11/20/18 Range/Units 07:07 WBC 4.4 (3.5-10.8) 10^3/uL RBC 4.70 (3.70-4.87) 10^6 /uL Hgb 13.9 (12.0-16.0) g/dL Hct 41 (35-47) % MCV 88 (80-97) fL MCH 30 (27-31) pg MCHC 34 (31-36) g/dL RDW 14 (10-15) % Plt Count 142 L (150-450) 10^3/uL MPV 9.0 (7.4-10.4) fL Neut % (Auto) 49.9 % Lymph % (Auto) 31.4 % [place] % (Auto) 9.3 % Eos % (Auto) 8.3 % Baso % (Auto) 1.1 % Absolute Neuts (auto) 2.2 (1.5-7.7) 10^3/ul Absolute Lymphs (auto) 1.4 (1.0-4.8) 10^3/ul Absolute Monos (auto) 0.4 (0-0.8) 10^3/ul Absolute Eos (auto) 0.4 (0-0.6) 10^3/ul Absolute Basos (auto) 0.0 (0-0.2) 10^3/ul Absolute Nucleated RBC 0.0 10^3/ul Nucleated RBC % 0.1 Assessment/Plan 1. Psychogenic non-epileptic seizures-Certainly the event yesterday was a pseudoseizure. I am not clear if she also has complex partial seizures and that 's why she is kept on levetiracetam. - She has not had any further events overnight. - Consider psychiatric consultation - Continue lamotrigine 100 mg twice daily - Follow-up with neurology as an outpatient to wean off levetiracetam 2. Headaches, concerning for elevated CSF pressure associated with intracranial idiopathic hypertension. Other d/d analgesic induced rebound headache since the pain seems to be controlled with hydrocodone. - I recommend an LP to check the opening pressure to help adjust her medication and for symptomatic relief. - Please consult anesthesia for a LP to check an opening pressure. If the pressure is high, please lower the pressure to less than 20 cm H2O. - I don't recommend narcotic therapy for the treatment of her headaches. Encourage her to discuss this further with her PCP and to wean off narcotics. 3. Conversion disorder with fluctuating subjective left hemiparesis. - Recommend outpatient cognitive behavior therapy. I will continue to follow
--- NOTE | 2018-11-21 14:47 | CONSULT ---
Consult Consult: Anesthesiology Consult Asked to do Lumbar puncture and obtain opening pressures to rule out pseudotumor cerebri in this patient with headaches, negative CT and history of non-epileptogenic pseudoseizures, and conversion disorder. Labs were reviewed, meds reviewed, case discussed with hospitalist, Giana Leone, and OR procedure room arranged. However, patient has refused the lumbar puncture. Aletha Roberts MD
[2018-11-21 15:39] VITALS: BP 105/69
[2018-11-21] MEDS ORDERED: Atorvastatin* 40 MG TAB PO SCH (18:00)
--- NOTE | 2018-11-21 21:39 | DS ---
CC: Dr. Hensley * DISCHARGE SUMMARY: DATE OF ADMISSION: 11/20/18 DATE OF DISCHARGE: 11/21/18 PRIMARY CARE PHYSICIAN: Dr. Hensley. ATTENDING PHYSICIAN: Bridgette Redman MD * (dictated by JACQUI Dia ). PRIMARY DIAGNOSES: 1. Left-sided weakness. 2. Left gaze deviation. CONSULTATIONS WHILE IN THE HOSPITAL: Neurology: The patient presents with worsening left- sided weakness and an episode of seizure-like activity that was inconsistent with ictal seizure. She immediately regained consciousness with nasal stimulation. No postictal period. Trigger is likely recent family stressors of having daughter move in with her. EEG showed normal background minutes after episode. The patient is on lamotrigine, which is a good choice for a mood disorder, not quite sure why she is still taking levetiracetam, but will not change medication since she is followed by neurologist in the outpatient community. Please provide reassurance during these events. History of functional weakness of left upper and lower extremities, most likely conversion disorder. She sees psychiatrist and Dr. Mills, neurologist at [facility]. CT and CTA were unremarkable. Given similar presentations in the past and no weakness on exam, prefer not to perform any further testing. STUDIES WHILE IN THE HOSPITAL: Electroencephalogram. Clinical impression: This is a normal awake EEG with no evidence of epileptiform discharges or electrographic seizures. DISCHARGE MEDICATIONS: Home medications: 1. Acetaminophen/codeine 30 mg tab 1 tab p.o. b.i.d. 2. Acetazolamide 500 mg p.o. b.i.d. 3. Albuterol HFA inhaler 1 to 2 puffs inhalation q.6 hours p.r.n. shortness of breath, wheezing. 4. Atorvastatin 20 mg p.o. daily. 5. Citalopram 20 mg p.o. daily. 6. Cyanocobalamin 1000 mcg p.o. daily. 7. Lamotrigine 100 mg p.o. b.i.d. 8. Levetiracetam 500 mg p.o. b.i.d. 9. Omeprazole 20 mg p.o. daily p.r.n. indigestion. New home medication: 1. Cyanocobalamin. HISTORY OF PRESENT ILLNESS/HOSPITAL COURSE: Ms. He is a 53-year-old female with a past medical history of pseudotumor cerebri and psychogenic nonepileptic spells, who presented to the ER on 11/20/18 with complaints of left-sided weakness and left gaze deviation. She notes that she has been seizure-free for 6 months. Her daughter and grandchildren moved in with her recently, which has caused her some acute stress. She notes that yesterday morning, she woke and noticed vision change. She went back to bed and woke again around 5 and noticed left eye deviation, left and up, and left-sided weakness. She was brought to the ER by ambulance and admitted for further workup. While in the ER , neurologist, Dr. Berkowitz was called to the patient's bedside due to seizure- like activity which lasted 1 to 2 minutes. The patient was immediately speaking after the event. With reassurance, after 1 to 2 minutes, she started talking. She stated people were pulling on her right shoulder during her seizure-like activity and that it was painful. She expressed that she had headaches. The patient then received an EEG immediately after this event, which showed normal background. With seizure, it was expected to see generalized convulsion, so it is likely that this was a pseudo seizure. Recommendations were to continue lamotrigine. There is a question as to why the patient is on levetiracetam but this will be deferred to her primary neurologist. She complained of headache on the day of admission and on the day of discharge. She was requesting lumbar puncture to check opening pressure, which was ordered. The patient then refused a lumbar puncture noting that she had her hydrocodone and her headache was relieved. She remains headache-free at the time of discharge. In regards to the patient's left-sided weakness, she does have history of CVA that has resulted in left facial droop. She also has a history of functional weakness, left upper and lower extremity. This is concerning for a possible conversion disorder as past CT and CTA were unremarkable and current presentation is consistent with similar presentations in the past. This is suspected to be a conversion disorder with fluctuating subjective left hemiparesis. Her exam is within normal limits with equal strength bilaterally in the upper and lower extremities. Recommendation is for cognitive behavioral therapy. The patient was noted to have low B12 levels. She was given 1000 mcg cyanocobalamin IM x1 and started on oral cyanocobalamin 1000 mcg daily. At the time of discharge, the patient states she is feeling better than she has over the last 2 days. She does continue to express concern about home stressors with her daughter and her daughter's children moving in with her recently. She denies headache, vision changes including blurred vision, which she noted at admission. She notes that her left-sided weakness is back to baseline, although her strength exam was within normal limits. She denies chest pain, shortness of breath, cough, fever, vision changes, headache, dizziness, lightheadedness, abdominal pain, nausea, vomiting, diarrhea, constipation, pain in the extremities, myalgias, arthralgias, numbness or tingling. Ms. He is stable for discharge. REVIEW OF SYSTEMS: A 10-point review of systems has been performed and all the pertinent positives and negatives are in the HPI. All other systems are negative. PHYSICAL EXAMINATION: Vital signs: Temperature 98.2 temporal, heart rate 79, respiratory rate 16, oxygen saturation 99% on room air, blood pressure 105/69. General: Ms. He is a well-developed, well-nourished, obese white woman, who is sleeping comfortably in bed. She wakes easily. She has a left-sided facial droop, which she states is chronic. She is pleasant and cooperative, appears mildly tired. HEENT: Visual mcbride grossly intact. PERRL, EOMI, nonicteric sclerae. Hearing grossly intact. Oral mucous membranes are moist. Tongue is at midline. Palate elevates symmetrically. Pharynx is clear. Cardiovascular: Regular rate and rhythm with S1 and S2 present without murmurs, rubs, clicks, or gallops. There is no JVD. There is no peripheral edema. Radial and pedal pulses are palpable. Pulmonary: Symmetrical chest expansion without use of accessory muscles. Lungs are clear to auscultation bilaterally without rhonchi , wheezes, or rubs. No digital clubbing or cyanosis. Abdomen: Obese, bowel sounds in all quadrants. The abdomen is soft. There is no tenderness to palpation. No noted hepatosplenomegaly. Musculoskeletal: Full range of motion without pain or deformities. Neuro: The patient is awake. She is alert and oriented x3 with cranial nerves grossly intact. The patient has equal muscle strength in bilateral upper and lower extremities that is equal. Rug Inspector strength is equal. Sensation is intact peripherally. DISCHARGE PLAN: Ms. He will be discharged to home. CONDITION: Good. DIET: Heart healthy. ACTIVITY: As tolerated. MEDICATIONS: Cyanocobalamin p.o. daily. EDUCATION: 1. Follow up with primary care provider in 4 to 7 days. 2. Follow up with psychiatrist. Consider CBT. 3. Return to the ER or nearest hospital if you experience any shortness of breath, chest discomfort or pain, high fevers, chills, night sweats, dizziness, lightheadedness, loss of consciousness or any other worrisome signs or symptoms. This is a summarized report of a complex medical history and hospital stay. For further details, please see the entire medical record. TIME SPENT: Approximately 35 minutes was spent on this discharge, greater than half that time was spent [id number] with the patient discussing discharging plans and instructions. JACQUI ZUNIGA [id number]/[facility] #: [id number] JORDY
[2018-11-22] MEDS ORDERED: Cyanocobalamin TAB* 500 MCG PO SCH (09:00)
== END 2018-11-21 18:27 | disposition home or self-care (01) ==
LOC: ED 06:33 → MEDTELE 09:03
PROVIDERS: ADMIT Hospitalist; ATTEND Internal Medicine
DX: R53.1 Weakness (principal); H51.8 Other specified disorders of binocular movement; G93.2 Benign intracranial hypertension; E78.5 Hyperlipidemia, unspecified; K21.9 Gastro-esophageal reflux disease without esophagitis; F41.9 Anxiety disorder, unspecified; F43.10 Post-traumatic stress disorder, unspecified; Z86.73 Personal history of transient ischemic attack (TIA), and cerebral infarction without residual deficits; Z79.899 Other long term (current) drug therapy; Z88.0 Allergy status to penicillin; E03.9 Hypothyroidism, unspecified; I10 Essential (primary) hypertension
CPT/HCPCS: 36415; 70450; 70496; 70498; 71045; 80053; 80061; 81003; 82607; 83605; 84443; 84484; 85025; 85610; 85730; 93005; 95816; 96372; 99285; A9270-GY; G0378; J1644; J3420

== ENCOUNTER 2019-05-16 14:48 | Emergency (ER) | payer OTHER ==
[2019-05-16 15:54] LABS: Influenza A Molecular Negative (Negative); Influenza B Molecular Negative (Negative)
[2019-05-16] MEDS ORDERED: Lorazepam PYXIS KEY PRN (15:56)
[2019-05-16] MEDS ORDERED: LORazepam INJ* 2 MG/ML 1 ML VIAL IV PUSH ONE (15:56)
[2019-05-16] MEDS ORDERED: LORazepam INJ* 2 MG/ML 1 ML VIAL ONE (15:58)
[2019-05-16] MEDS ORDERED: Lorazepam PYXIS KEY ONE (15:58)
[2019-05-16 16:17] LABS: Rapid Strep Molecular Negative (Negative)
[2019-05-16 16:20] LABS: ABS Basophils 0.1 10^3/ul (0-0.2); ABS Eosinophils 0.7 10^3/ul (0-0.6); ABS Lymphocytes 1.8 10^3/ul (1.0-4.8); ABS Monocytes 0.4 10^3/ul (0-0.8); ABS Neutrophils 3.1 10^3/ul (1.5-7.7); Eosinophil % 11.1 %; Hematocrit 44 % (35-47); Hemoglobin 14.8 g/dL (12.0-16.0); Lymphocyte % 29.8 %; Mean Corpuscular HGB Conc 34 g/dL (31-36); Mean Corpuscular Hemoglobin 30 pg (27-31); Mean Corpuscular Volume 89 fL (80-97); Mean Platelet Volume 8.8 fL (7.4-10.4); Nucleated Red Blood Cells % 0.1; Platelet Count 191 10^3/uL (150-450); Red Blood Count 4.95 10^6 /uL (3.70-4.87); Red Cell Distribution Width 15 % (10-15)
--- NOTE | 2019-05-16 16:24 | ED ---
HPI Febrile Illness - HPI Summary HPI Summary: This pt is a 53 Y/O F [facility] a CC of a fever that has been present since last night at 1800 and was 102 F last checked. She states that she has had a productive cough which is currently nonproductive starting on 05/12. She states that she has been SOB since the onset of the cough. Last night her symptoms worsened when she had multiple seizures. She reports 2 seizures today that were both witnessed. The first was in the ambulance while the pt was en route to [facility] and lasted for 80 secinds per EMS staff. The second seizure occurred in her room after she arrived. She reports no aggravating or alleviating factors. She also reports CP that is rated an 8/10 in severity due to an Upper Respiratory infection that has been treated since last week. Pt denies any chills, erythema of eyes, sore throat, CP, abdominal pain, N/V, dysuria, hematuria, myalgia, edema, rash, or dizziness. She has a PMHx of seizure disorders and asthma. Currently her seizures are treated in [facility]. - History of Current Complaint Chief Complaint: EDSeizure Time Seen by Provider: 05/16/19 14:59 Hx Obtained From: Patient Onset/Duration: Started Days Ago - 1, Still Present Time of Onset: 18:00 Timing: Constant, Lasting Hours - 22 Temperature: 102 F Initial Severity: Moderate Current Severity: Severe Pain Intensity: 8 Pain Scale Used: 0-10 Numeric Aggravating Factors: Nothing Alleviating Factors: Nothing Associated Signs and Symptoms: Negative - chills, erythema of eyes, sore throat , CP, abdominal pain, N/V, dysuria, hematuria, myalgia, edema, rash, or dizziness, SOB, Other: - CP, seizures, productive and nonproductive cough - Additional Pertinent History Primary Care Physician: [id number] - Allergy/Home Medications Allergies/Adverse Reactions: Allergies Allergy/AdvReac Type Severity Reaction Status Date / Time doxycycline Allergy Unknown Verified 05/16/19 14:52 Reaction Details erythromycin base Allergy Hives Verified 11/20/18 07:40 latex Allergy Rash Verified 11/20/18 07:40 Penicillins Allergy Hives Verified 11/20/18 07:40 Home Medications: Home Medications Atorvastatin* [Lipitor 20 MG*] 20 mg PO DAILY 10/15/13 [History Confirmed ] lamoTRIgine TAB(*) [Lamictal TAB(*)] 100 mg PO BID 10/15/13 [History Confirmed 05/16/19] Acetaminop/Codeine 30 MG TAB* [Tylenol/Codeine 30 MG TAB*] 1 tab PO Q12HR PRN MDD 2 tabs 05/16/19 [History Confirmed 05/16/19] Albuterol inh POWDER (NF) [Proair Respiclick] 1 - 2 puff INH Q6HR PRN 05/16/19 [ History Confirmed 05/16/19] Citalopram TAB* [CeleXA TAB*] 30 mg PO DAILY 05/16/19 [History Confirmed ] Cyanocobalamin (Vitamin B-12) [Vitamin B-12] 2,500 mcg SL DAILY 05/16/19 [ History Confirmed 05/16/19] Omeprazole CAP (NF) [Prilosec CAP* 20 MG] 20 mg PO DAILY 05/16/19 [History Confirmed 05/16/19] acetaZOLAMIDE TAB* [Diamox TAB*] 1,000 mg PO BID 05/16/19 [History Confirmed ] hydrOXYzine HCL TAB* [Atarax 25 MG TAB*] 50 mg PO QPM 05/16/19 [History Confirmed 05/16/19] levETIRAcetam TAB* [Keppra TAB*] 1,000 mg PO BID 05/16/19 [History Confirmed ] PMH/Surg Hx/FS Hx/Imm Hx Previously Healthy: Yes Endocrine/Hematology History: Reports: Hx Thyroid Disease - DOES NOT NEED MEDS ANYMORE Denies: Hx Diabetes Cardiovascular History: Reports: Hx Hypertension Denies: Hx Congestive Heart Failure Respiratory History: Reports: Hx Asthma GI History: Reports: Hx Irritable Bowel History: Denies: Hx Renal Disease Musculoskeletal History: Reports: Hx Arthritis - Arms, Other Musculoskeletal History - Torn rotator cuff right side Sensory History: Reports: Hx Contacts or Glasses Denies: Hx Cataracts, Hx Hearing Aid Opthamlomology History: Reports: Hx Contacts or Glasses Denies: Hx Cataracts Neurological History: Reports: Hx CVA - 2x, Hx Headaches - From ICP, Hx Seizures Psychiatric History: Reports: Hx Anxiety, Hx Post Traumatic Stress Disorder - Abuse - Cancer History Cancer Type, Location and Year: 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 29 Hx Chemotherapy: No Hx Radiation Therapy: No - Surgical History Surgical History: Yes Surgery Procedure, Year, and Place: HYSTERECTOMY, T&A - Immunization History Immunizations Up to Date: Yes Infectious Disease History: No Infectious Disease History: Denies: Traveled Outside the [place] in Last 30 Days - Family History Known Family History: Positive: Hypertension - Social History Occupation: Employed Full-time Lives: With Family Alcohol Use: Occasionally Alcohol Amount: one glass of wine last night 11/19/18 Hx Substance Use: No Substance Use Type: Reports: None Hx Tobacco Use: No Smoking Status (MU): Never Smoked Tobacco Review of Systems Positive: Fever - 102 F. Negative: Chills Negative: Erythema Negative: Sore Throat Positive: Chest Pain Positive: Shortness Of Breath, Cough - productive and nonproductive Negative: Abdominal Pain, Vomiting, Nausea Negative: dysuria, hematuria Negative: Myalgia, Edema Negative: Rash Neurological/Mental Status: Negative - dizziness All Other Systems Reviewed And Are Negative: Yes Physical Exam - Summary Physical Exam Summary: Constitutional: Well-developed, Well-nourished, Alert. (-) Distressed Skin: Warm, Dry HENT: Normocephalic; Atraumatic Eyes: Conjunctiva normal, L side gaze deviation and unresponsive Neck: Musculoskeletal ROM normal neck. (-) JVD, (-) Stridor, (-) Tracheal deviation Cardio: Rhythm regular, rate normal, Heart sounds normal; Intact distal pulses; The pedal pulses are 2+ and symmetric. Radial pulses are 2+ and symmetric. (-) Murmur Pulmonary/Chest wall: Effort normal. (-) Respiratory distress, (-) Wheezes, (-) Rales, Crackles in the ZARINA Abd: Soft, (-) tenderness, (-) Distension, (-) Guarding, (-) Rebound Musculoskeletal: (-) Edema Lymph: (-) Cervical adenopathy Neuro: Alert, Oriented x3 Psych: Mood and affect Normal Triage Information Reviewed: Yes Vital Signs On Initial Exam: Initial Vitals Temp Pulse Resp BP Pulse Ox 98.2 F 104 25 132/95 98 05/16/19 14:49 05/16/19 14:49 05/16/19 14:49 05/16/19 14:49 05/16/19 14:49 Vital Signs Reviewed: Yes Procedures - Sedation Patient Received Moderate/Deep Sedation with Procedure: No Diagnostics - Vital Signs Vital Signs Temp Pulse Resp BP Pulse Ox 05/16/19 16:02 22 05/16/19 14:49 98.2 F 104 25 132/95 98 - Laboratory Lab Results: Lab Results 05/16/19 Range/Units 15:20 Influenza A (Rapid) Negative (Negative) Influenza B (Rapid) Negative (Negative) Result Diagrams: 05/16/19 15:45 05/16/19 15:45 Lab Statement: Any lab studies that have been ordered have been reviewed, and results considered in the medical decision making process. - Radiology CXR Radiology Interpretation Completed By: Radiologist Summary of Radiographic Findings: NO ACTIVE CARDIOPULMONARY DISEASE IS NOTED. ED physician has reviewed this report. - CT Chest/Thorax CTA CT Interpretation Completed By: Radiologist Summary of CT Findings: 1. There is bibasilar and bilateral dependent atelectatic change or scarring. The lungs are otherwise clear with no evidence for pneumonitis. 2. No visible acute pulmonary embolism. ED physician has reviewed this report. - EKG 1625 Cardiac Rate: NL - 92 BPM EKG Rhythm: Sinus Rhythm ST Segment: Non-Specific Ectopy: None Summary of EKG Findings: Normal sinus rhythm at 92 bpm, normal MT, normal QRS, normal QTc, normal axis, normal ST, T Wave flattened in leads V3-V6 more than November 2018. Interpreted by Dr. Romero at 05/16/2019 1630. Course/Dx - Course Course Of Treatment: This pt is a 53 Y/O F presenting [facility] with a CC of a fever that has been present since last night and was 102 F last checked. She states that she has had a productive cough which is currently nonproductive starting on 05/13/2019. She states that she has been SOB since the onset of the cough. Last night her symptoms worsened when she had multiple seizures. She reports 2 seizures today that were both witnessed. The first was in the ambulance while the pt was en route to [facility] and lasted for 80 secinds per EMS staff. The second seizure occurred in her room after she arrived. She reports no aggravating or alleviating factors. Her PE found that she has crackles in the ZARINA and had a L side gaze deviation and was unresponsive upon arrival. CXR : NO ACTIVE CARDIOPULMONARY DISEASE IS NOTED. Her Rapid strep and influenza tests were negative. Chest/Thorax CTA: 1. There is bibasilar and bilateral dependent atelectatic change or scarring. The lungs are otherwise clear with no evidence for pneumonitis. 2. No visible acute pulmonary embolism. Brain CT: 1. There is stable age-related diffuse cerebral volume loss and chronic microvascular ischemic disease. 2. No acute intracranial pathology. Dr. Mills , neurology, was consulted at 1755. Informed of the pt's multiple seizures and onset of a fever. Recommended discharge and follow up as an outpatient with her neruologist. Increase Keppra while in ED, let primary neruologist choose to change normal medications. She will be discharged home with a Dx of breakthrough seizures and an URI. She has no known COVID-19 symptoms. - Diagnoses Provider Diagnoses: URI (upper respiratory infection), Breakthrough seizure - Provider Notifications Discussed Care Of Patient With: Toribio Mills Time Discussed With Above Provider: 17:55 Instructed by Provider To: Other - Dr. Mills, neurology, was consulted at 1755. Informed of the pt's multiple seizures and onset of a fever. Recommended discharge and follow up as an outpatient with her neruologist. Increase Keppra while in ED, let primary neruologist choose to change normal medications. Discharge ED - Sign-Out/Discharge Documenting (check all that apply): Patient Departure - discharge - Discharge Plan Condition: Good Disposition: HOME Patient Education Materials: Upper Respiratory Infection (ED), Nonepileptic Seizures (ED) Referrals: Tony Hensley MD [Primary Care Provider] - 2 Days Additional Instructions: PLEASE FOLLOW UP WITH YOUR PRIMARY CARE PHYSICIAN IN THE NEXT 1-3 DAYS AND FOLLOW UP WITH YOUR NEUROLOGIST TO DISCUSS POTENTIAL MEDICATION CHANGES. RETURN TO THE EMERGENCY DEPARTMENT FOR ANY NEW OR WORSENING SYMPTOMS. - Attestation Statements Document Initiated by Scribe: Yes Documenting Scribe: Jm Rich Provider For Whom Scribe is Documenting (Include Credential): Endy Romero MD Scribe Attestation: Jm Augustin, scribed for Endy Romero MD on 05/16/19 at 8622. Status of Scribe Document: Ready
[2019-05-16 16:30] LABS: Activated Partial Thrombo Time 35.9 seconds (26.0-38.0); INR 0.97 (0.82-1.09)
[2019-05-16 16:38] LABS: Albumin 4.2 g/dL (3.2-5.2); Albumin/Globulin Ratio 1.4 (1-3); BUN/Creatinine Ratio 16.7 (8-20); Calcium 9.6 mg/dL (8.6-10.3); EGFR African American 85.8 (>60); EGFR Non-African American 70.9 (>60); Globulin 2.9 g/dL (2-4); Potassium 4.6 mmol/L (3.5-5.0); Total Bilirubin 0.3 mg/dL (0.2-1.0); Total Protein 7.1 g/dL (6.4-8.9); Troponin I 0.01 ng/mL (<0.03)
[2019-05-16] MEDS ORDERED: Iohexol 350* (CONTRAST) 500 ML MDV IV ONE (16:47)
[2019-05-16] MEDS ORDERED: levETIRAcetam 500 MG IVPREMIX* 500 MG/100 ML BAG IVPB ONE (17:51)
[2019-05-16 19:46] VITALS: BP 139/88
--- NOTE | 2019-05-17 10:37 | ED ---
Imaging and Labs Follow Up Follow Up Type: Labs/Cultures Labs/Culture Result: Blood cultures returned showing aerobic bacteria growth in one of 4 bottles. Throat reveals gram-positive cocci resembling staph. MRSA negative, staph aureus negative. Patient Communication/Plan: Nothing further at this time. Sample likely contaminated. Provider Diagnoses: URI (upper respiratory infection), Breakthrough seizure
[2019-05-19 15:44] LABS: Lamotrigine 3.1 mcg/mL (2.5 - 15.0)
[2019-05-19 16:00] LABS: Levetiracetam 12.5 mcg/mL
== END 2019-05-16 19:42 | disposition home or self-care (01) ==
LOC: ED 14:48
DX: J06.9 Acute upper respiratory infection, unspecified (principal); R56.9 Unspecified convulsions; E03.9 Hypothyroidism, unspecified; I10 Essential (primary) hypertension; J45.909 Unspecified asthma, uncomplicated; F41.9 Anxiety disorder, unspecified; F43.10 Post-traumatic stress disorder, unspecified; Z86.73 Personal history of transient ischemic attack (TIA), and cerebral infarction without residual deficits; Z90.710 Acquired absence of both cervix and uterus; Z79.899 Other long term (current) drug therapy; Z88.0 Allergy status to penicillin; Z88.1 Allergy status to other antibiotic agents; Z91.040 Latex allergy status
CPT/HCPCS: 36415; 70450; 71045; 71275; 80053; 80175; 80177; 83605; 84484; 85025; 85610; 85730; 87040; 87077; 87150; 87205; 87651; 96374; 96375; 99285; J2060; Q9967

== ENCOUNTER 2021-11-02 15:50 | Observation (INO) ==
[2021-11-02] MEDS ORDERED: LORazepam 2 mg VIAL 1 ml ONE (16:06)
[2021-11-02] MEDS ORDERED: levETIRAcetam 1000MG IVPREMIX 1,000 MG/100 ML BAG IVPB ONE (16:17)
[2021-11-02] MEDS ORDERED: Lorazepam PYXIS KEY PRN (16:18)
[2021-11-02] MEDS ORDERED: LORazepam 2 mg VIAL 1 ml IV PUSH ONE (16:18)
[2021-11-02] MEDS ORDERED: oxyCODONE/Acetamin 5/325 mg TAB PO ONE (16:40)
[2021-11-02 16:43] LABS: ABS Basophils 0.1 10^3/ul (0-0.2); ABS Eosinophils 0.4 10^3/ul (0-0.6); ABS Lymphocytes 1.8 10^3/ul (1.0-4.8); ABS Monocytes 0.3 10^3/ul (0-0.8); Eosinophil % 6.9 %; Hematocrit 42 % (35-47); Hemoglobin 13.9 g/dL (12.0-16.0); Lymphocyte % 31.7 %; Mean Corpuscular HGB Conc 34 g/dL (31-36); Mean Corpuscular Hemoglobin 30 pg (27-31); Mean Corpuscular Volume 88 fL (80-97); Mean Platelet Volume 8.6 fL (7.4-10.4); Platelet Count 165 10^3/uL (150-450); Red Blood Count 4.71 10^6 /uL (3.70-4.87); Red Cell Distribution Width 15 % (10-15); White Blood Count 5.6 10^3/uL (3.5-10.8)
[2021-11-02 16:55] LABS: INR 0.95 (0.89-1.11)
[2021-11-02 17:14] LABS: Albumin 4.2 g/dL (3.2-5.2); Albumin/Globulin Ratio 1.6 (1-3); Calcium 9.3 mg/dL (8.6-10.3); Globulin 2.6 g/dL (2-4); Magnesium 1.9 mg/dL (1.9-2.7); Total Bilirubin 0.3 mg/dL (0.2-1.0); Total Protein 6.8 g/dL (6.4-8.9); eGFR CKD-EPI 68.6 (>60)
[2021-11-02 18:02] LABS: Urine Appearance Clear; Urine Bilirubin Negative (Negative); Urine Blood Negative (Negative); Urine Color Colorless; Urine Glucose Negative (Negative); Urine Ketones Negative (Negative); Urine Nitrite Negative (Negative); Urine Protein Negative (Negative); Urine Urobilinogen 0.2 (Negative) (Negative)
[2021-11-02 18:06] LABS: High Sensitivity Troponin 1 Hr 7 pg/mL (<15)
[2021-11-02 18:35] LABS: Urine Bacteria Absent (Absent); Urine Red Blood Cell Absent (Absent); Urine Squamous Epithelial Cell Present (Absent); Urine White Blood Cell 1+(6-10/hpf) (Absent)
[2021-11-02] MEDS ORDERED: Polyethylene Glycol 3350 BTL 238 GM BTL PO PRN (22:21)
[2021-11-02] MEDS ORDERED: Albuterol HFA INHALER 8 gm MDI INH PRN (22:40)
[2021-11-02] MEDS: oxyCODONE/Acetamin 5/325 mg TAB PO PRN (22:46)
[2021-11-02] MEDS ORDERED: Polyethylene Glycol 3350 17 GM PACKET PO PRN (23:00)
[2021-11-03] MEDS ORDERED: Lorazepam PYXIS KEY PRN ×3 (01:35→03:34)
[2021-11-03] MEDS ORDERED: LORazepam 2 mg VIAL 1 ml IV PUSH ONE ×2 (01:35→03:34)
[2021-11-03] MEDS ORDERED: LORazepam 2 mg VIAL 1 ml ONE (01:36)
[2021-11-03] MEDS ORDERED: Dextrose 50% Syringe 50 ml 25 GM/50 ML SYRINGE ONE (03:17)
[2021-11-03] MEDS ORDERED: LORazepam 2 mg VIAL 1 ml IV PUSH PRN (03:29)
[2021-11-03] MEDS ORDERED: Dextrose 50% Syringe 50 ml 25 GM/50 ML SYRINGE IV PUSH ONE (03:35)
[2021-11-03] MEDS: ACETAZOLAMIDE 500 MG PO SCH ×3 (03:51→20:46)
[2021-11-03 04:52] LABS: ABS Basophils 0.1 10^3/ul (0-0.2); ABS Eosinophils 0.4 10^3/ul (0-0.6); ABS Lymphocytes 2.6 10^3/ul (1.0-4.8); ABS Monocytes 0.4 10^3/ul (0-0.8); ABS Neutrophils 2.9 10^3/ul (1.5-7.7); Eosinophil % 5.7 %; Hematocrit 41 % (35-47); Hemoglobin 13.8 g/dL (12.0-16.0); Lymphocyte % 41.5 %; Mean Corpuscular HGB Conc 34 g/dL (31-36); Mean Corpuscular Hemoglobin 30 pg (27-31); Mean Corpuscular Volume 88 fL (80-97); Mean Platelet Volume 8.8 fL (7.4-10.4); Nucleated Red Blood Cells % 0.1; Platelet Count 151 10^3/uL (150-450); Red Blood Count 4.65 10^6 /uL (3.70-4.87); Red Cell Distribution Width 15 % (10-15); White Blood Count 6.4 10^3/uL (3.5-10.8)
[2021-11-03 05:41] LABS: Calcium 8.7 mg/dL (8.6-10.3); Potassium 3.9 mmol/L (3.5-5.0); eGFR CKD-EPI 63.1 (>60)
[2021-11-03] MEDS: NF: Cyanocobalamin 2,500 mcg TAB SL SCH (09:08)
[2021-11-03 15:45] LABS: Body Fluid Source Cerebral Spinal
[2021-11-03 15:47] LABS: Body Fluid Appearance Clear; Body Fluid Color Colorless; CSF Tube # 4
[2021-11-03 15:59] LABS: Body Fluid WBC 1 /mcL
[2021-11-03 16:05] LABS: CSF Glucose 57 mg/dL (40-70)
[2021-11-03 16:46] LABS: Body Fluid Mono 8 %; Body Fluid Total Cells Counted 13
[2021-11-03] MEDS: oxyCODONE/Acetamin 5/325 mg TAB PO PRN (20:46)
[2021-11-04] MEDS: LORazepam 2 mg VIAL 1 ml IV PUSH PRN (08:44)
[2021-11-04] MEDS: ACETAZOLAMIDE 500 MG PO SCH ×2 (09:43→21:52)
[2021-11-04] MEDS: NF: Cyanocobalamin 2,500 mcg TAB SL SCH (09:46)
[2021-11-04] MEDS: oxyCODONE/Acetamin 5/325 mg TAB PO PRN ×2 (11:32→21:03)
[2021-11-05] MEDS: oxyCODONE/Acetamin 5/325 mg TAB PO PRN (03:32)
[2021-11-05 08:16] VITALS: BP 115/69
[2021-11-05] MEDS: NF: Cyanocobalamin 2,500 mcg TAB SL SCH (08:23)
[2021-11-05] MEDS: LORazepam 2 mg VIAL 1 ml IV PUSH PRN (08:25)
[2021-11-05] MEDS: ACETAZOLAMIDE 500 MG PO SCH (08:25)
== END 2021-11-05 10:40 | disposition home or self-care (01) ==
LOC: ED 15:50 → EDHOLD 15:50 → SUATTDRO 22:15 → MEDTELE 11-03 02:36
PROVIDERS: ADMIT Internal Medicine; ATTEND Internal Medicine